=== PATIENT | male | born 1975 | race American Indian/Alaskan Native ===

== ENCOUNTER 2020-08-15 12:05 | Emergency (ER) | payer SELFPAY ==
[2020-08-15 12:28] VITALS: BP 139/100
[2020-08-15] MEDS ORDERED: FAMOTIDINE 20 MG/2 ML INJ IV ONE (12:29)
[2020-08-15] MEDS ORDERED: diphenhydrAMINE 50 MG/ML VIAL IV ONE (12:29)
[2020-08-15] MEDS ORDERED: dexAMETHasone 20 MG/5 ML VIAL IV ONE (12:29)
--- NOTE | 2020-08-15 12:29 | Event Note ---
ED Screening Note ED Screening Note: allergic reaction to hair dye 4 days ago states that it feels swollen +itching used the hair dye on the head and segura allergies to seafood no other known allergies no other pmhx no allergies to meds This initial assessment/diagnostic orders/clinical plan/treatment(s) is/are subject to change based on patients health status, clinical progression and re- assessment by fellow clinical providers in the ED. Further treatment and workup at subsequent clinical providers discretion. Patient/guardian urged not to elope from the ED as their condition may be serious if not clinically assessed and managed. Initial orders include: meds ACC eval
--- NOTE | 2020-08-15 13:58 | Emergency Department Report ---
ED Allergic Reaction HPI - General Chief complaint: Allergic Reaction Stated complaint: ALLERGIC REACTION TO HAIR DYE Time Seen by Provider: 08/15/20 12:27 Source: patient Mode of arrival: Ambulatory Limitations: No Limitations - History of Present Illness Initial Comments: 44-year-old -Greek male presents to the ER today complaint of allergic reaction after using a hair dye 4 days ago. Patient states that his hair was dyed black with a hair dye that he has never used before. The brand was [employer] black. The hair on his head as well as his segura were dyed using that brand. This was done by his mendes. He states that after the hair dye was rinsed off, he started having some mild itching to his scalp and his face. He states when he got home he started noticing that his face was puffy, he immediately got into the shower and rinsed his here, and his segura some more because he was concerned he was not rinsed well. He states that he did not notice any more hair color draining while rinsing. He states that despite rinsing he still continues to have swelling around his face, and he started developing a pruritic rash. And so he decided to cut all his here off his head and his segura. He denies any tongue lip or throat swelling. He denies any difficulty breathing, coughing or wheezing. He states that he did start taking Benadryl when his symptoms started, but only with mild relief. Complaint: allergic reaction Exposure: other (Hair dye) - Related Data Previous Rx's Medication Instructions Recorded Last Taken Type diphenhydrAMINE [Benadryl CAP] 25 mg PO Q6HR PRN #30 capsule 08/15/20 Unknown Rx methylPREDNISolone [Medrol 4MG 4 mg PO DAILY #1 tab.ds.pk 08/15/20 Unknown Rx DOSEPAK (21 tabs)] Allergies Allergy/AdvReac Type Severity Reaction Status Date / Time No Known Allergies Allergy Verified 08/15/20 12:28 ED Review of Systems ROS: Stated complaint: ALLERGIC REACTION TO HAIR DYE Other details as noted in HPI Comment: All other systems reviewed and negative Constitutional: denies: chills, fever Eyes: denies: as per HPI ENT: denies: ear pain, throat pain Respiratory: denies: cough, shortness of breath, wheezing Cardiovascular: denies: chest pain, palpitations Gastrointestinal: denies: nausea, vomiting, diarrhea, constipation, hematochezia Genitourinary: denies: urgency, dysuria, frequency, hematuria Skin: rash, pruritus Neurological: denies: headache, weakness, paresthesias Psychiatric: denies: anxiety, depression Hematological/Lymphatic: denies: easy bleeding, easy bruising ED Past Medical Hx - Past Medical History Previous Medical History?: No - Surgical History Past Surgical History?: No - Social History Smoking Status: Never Smoker Substance Use Type: None - Medications Home Medications: Home Medications Medication Instructions Recorded Confirmed Last Taken Type diphenhydrAMINE [Benadryl CAP] 25 mg PO Q6HR PRN #30 capsule 08/15/20 Unknown Rx methylPREDNISolone [Medrol 4MG 4 mg PO DAILY #1 tab.ds.pk 08/15/20 Unknown Rx DOSEPAK (21 tabs)] ED Physical Exam - General Limitations: No Limitations General appearance: alert, in no apparent distress - Head Head exam: Present: atraumatic, normocephalic, normal inspection - Eye Eye exam: Present: normal appearance Pupils: Present: normal accommodation - ENT ENT exam: Present: normal exam, normal orophraynx, mucous membranes moist - Neck Neck exam: Present: normal inspection - Respiratory Respiratory exam: Present: normal lung sounds bilaterally. Absent: respiratory distress - Cardiovascular Cardiovascular Exam: Present: regular rate - Neurological Exam Neurological exam: Present: alert, oriented X3, CN II-XII intact - Skin Skin exam: Present: intact, rash (Maculopapular rash some urticarial in appearance noted to the scalp especially more so to hairline, as well as to segura area, around his ears bilaterally, and posterior neck. There is no oozing or drainage. There is some mild swelling around his segura area. No lip, tongue or throat swelling noted. No periorbital swelling. No tenderness to palpation. No secondary bacterial infection.) ED Course Vital Signs 08/15/20 12:13 Temperature 98.3 F Pulse Rate 85 Respiratory 14 Rate Blood Pressure 139/100 O2 Sat by Pulse 100 Oximetry Critical care attestation.: If time is entered above; I have spent that time in minutes in the direct care of this critically ill patient, excluding procedure time. ED Disposition Clinical Impression: Chemical induced allergic contact dermatitis Disposition: DC- TO HOME OR SELFCARE Is pt being admited?: No Does the pt Need Aspirin: No Condition: Stable Instructions: Contact Dermatitis (ED) Additional Instructions: Start the Medrol Dosepak tomorrow. Continue taking Benadryl every 6 hours. I recommend that you wash your scalp in your face daily with a gentle soap such as Dove or Dial and with warm water. Avoid any peroxide or alcohol. I would also recommend that you avoid using that dye in the future. Follow-up with your primary care doctor. If anything changes or worsens return to the ER. Prescriptions: diphenhydrAMINE [Benadryl CAP] 25 mg PO Q6HR PRN #30 capsule PRN Reason: Itching methylPREDNISolone [Medrol 4MG DOSEPAK (21 tabs)] 4 mg PO DAILY #1 tab.ds.pk Referrals: LEXII CHESTER MD [Staff Physician] - 3-5 Days Forms: Work/School Release Form(ED) Time of Disposition: 14:03
== END 2020-08-15 14:37 | disposition home or self-care (01) ==
LOC: ED 12:05
DX: L23.5 Allergic contact dermatitis due to other chemical products (principal); Z79.899 Other long term (current) drug therapy
CPT/HCPCS: 96374; 96375; 99282; J1100; J1200